=== PATIENT | male | born 1995 | race Caucasian/White ===

== ENCOUNTER → 2016-08-23 | Outpatient (CLI) | payer OTHER ==
[~2016-08-23] MED LIST: GADAVIST IV PRN
--- NOTE | 2016-08-23 09:58 | DIAGNOSTIC IMAGING REPORT ---
MRI OF THE BRAIN WITHOUT AND WITH IV CONTRAST CLINICAL HISTORY: INTRACTABLE ALVAREZ COMPARISON STUDY: No previous studies for comparison. TECHNIQUE: Utilizing a 1.5 Jodie magnet and dedicated coil, multiplanar, multiecho imaging of the brain was performed pre and postcontrast administration. IV administration of 8 mL of Gadavist contrast was uneventful. FINDINGS: Normal study. Signal characteristics are unremarkable. Diffusion-weighted images show no acute ischemic event. Postcontrast images are negative for an enhancing lesion. IMPRESSION: Normal study. Electronically signed by: Mane Hdez M.D. 08/23/2016 9:57 AM Dictated Date/Time: 08/23/2016 9:53 AM
== END | disposition home or self-care (01) ==
LOC: C.MRIBC 09:09
PROVIDERS: ATTEND Physician Assistant
DX: R51 Headache (principal)